=== PATIENT | female | born 1950 | race African-American/Black ===

== ENCOUNTER 2017-09-24 08:40 | Emergency (ER) | payer MEDICARE ==
[~2017-09-24] VITALS: Ht 167.6 cm; Wt 91.0 kg
[~2017-09-24 08:40] MED LIST: AMLO1CAP6 PO; ASPI-986 PO; QUET100T PO; SIMV10TA6 PO; SUCR1TAB PO
[2017-09-24] MEDS ORDERED: SODIUM CHLORIDE 0.9% 1,000 ML IV ONE (08:51)
[2017-09-24 09:45] LABS: BASOPHILS % 0.8 % (0.0-2.0); EOSINOPHILS % 1.5 % (0.0-5.0); HEMATOCRIT. 31.8 % (36.0-48.0); HEMOGLOBIN. 11.2 g/dL (12.0-16.0); LYMPHOCYTES % 14.2 % (20.0-50.0); MEAN CORPUSCULAR HEMOGLOBIN 31.5 pg (28.0-32.0); MEAN CORPUSCULAR VOLUME 89.7 fL (81.0-99.0); MEAN PLATELET VOLUME 8.5 fl (7.4-10.4); MONOCYTES % 4.2 % (2.0-8.0); NEUTROPHILS % 79.3 % (40.0-76.0); PLATELET 195 x1000/uL (130-400); RED BLOOD CELL COUNT 3.55 mill/uL (4.2-5.4); RED CELL DISTRIBUTION WIDTH 13.8 % (11.6-14.6)
[2017-09-24 09:49] LABS: CHLORIDE 106 mEq/L (98-107)
[2017-09-24 11:05] LABS: CLARITY URINE CLEAR (CLEAR); COLOR URINE YELLOW (YELLOW); KETONES URINE NEGATIVE (NEGATIVE); LEUKOCYTE ESTERASE URINE 1+ (NEGATIVE); NITRITE URINE NEGATIVE (NEGATIVE); OCCULT BLOOD URINE NEGATIVE (NEGATIVE); PH URINE 5.5 (4.5-8.0); PROTEIN URINE NEGATIVE (NEGATIVE); SPECIFIC GRAVITY URINE 1.006 (1.005-1.030); UROBILINOGEN URINE 0.2 E.U./dL (0.2-1.0)
[2017-09-24 12:28] VITALS: BP 113/71
== END 2017-09-24 12:43 | disposition home or self-care (01) ==
LOC: ER 08:40
DX: R55 Syncope and collapse (principal); N39.0 Urinary tract infection, site not specified; R00.1 Bradycardia, unspecified; R42 Dizziness and giddiness; D64.9 Anemia, unspecified; I10 Essential (primary) hypertension; E11.65 Type 2 diabetes mellitus with hyperglycemia; M25.512 Pain in left shoulder; R20.2 Paresthesia of skin; M54.12 Radiculopathy, cervical region; Z87.42 Personal history of other diseases of the female genital tract; Z88.0 Allergy status to penicillin; Z79.899 Other long term (current) drug therapy
CPT/HCPCS: 36415; 71045; 80053; 81003; 84443; 84484; 85025; 93005; 96360; 96361; 99285; J7030

== ENCOUNTER 2021-12-08 10:15 | Emergency (ER) | payer MEDICARE ==
[~2021-12-08] VITALS: Ht 167.6 cm; Wt 87.0 kg
[~2021-12-08 10:15] MED LIST changes: -AMLO1CAP6 PO; +LOSA100T32 MT; -SIMV10TA6 PO; +SIMV10TA97 PO; -SUCR1TAB PO
[2021-12-08 10:45] LABS: EOSINOPHILS % 4.3 % (0.0-5.0); HEMATOCRIT. 36.3 % (36.0-48.0); HEMOGLOBIN. 12.5 g/dL (12.0-16.0); LYMPHOCYTES % 36.7 % (20.0-50.0); MEAN CORPUSCULAR HEMOGLOBIN 31.7 pg (28.0-32.0); MEAN CORPUSCULAR VOLUME 92.2 fL (81.0-99.0); MEAN PLATELET VOLUME 7.9 fl (7.4-10.4); MONOCYTES % 6.2 % (2.0-8.0); NEUTROPHILS % 51.8 % (40.0-76.0); PLATELET 208 x1000/uL (130-400); RED BLOOD CELL COUNT 3.94 mill/uL (4.2-5.4); RED CELL DISTRIBUTION WIDTH 13.3 % (11.6-14.6)
[2021-12-08 10:52] LABS: CHLORIDE 106 mEq/L (98-107)
[2021-12-08 11:31] LABS: CLARITY URINE CLEAR (CLEAR); COLOR URINE YELLOW (YELLOW); KETONES URINE NEGATIVE (NEGATIVE); LEUKOCYTE ESTERASE URINE TRACE (NEGATIVE); NITRITE URINE POSITIVE (NEGATIVE); OCCULT BLOOD URINE NEGATIVE (NEGATIVE); PH URINE 6.5 (4.5-8.0); PROTEIN URINE NEGATIVE (NEGATIVE); UROBILINOGEN URINE 0.2 E.U./dL (0.2-1.0)
[2021-12-08] MEDS ORDERED: CIPR-264 MT (12:28)
[2021-12-08 12:30] VITALS: BP 148/70
== END 2021-12-08 13:13 | disposition home or self-care (01) ==
LOC: ER 10:20
DX: N30.90 Cystitis, unspecified without hematuria (principal); I10 Essential (primary) hypertension; E11.9 Type 2 diabetes mellitus without complications; Z88.0 Allergy status to penicillin
CPT/HCPCS: 36415; 80053; 81003; 85025; 93005; 99285

== ENCOUNTER 2023-05-03 20:05 | Emergency (ER) | payer MEDICARE ==
[~2023-05-03] VITALS: Ht 167.6 cm; Wt 80.9 kg
[~2023-05-03 20:05] MED LIST changes: +CIPR-264 MT; -LOSA100T32 MT; +LOSA100T33 MT
[2023-05-03 20:07] VITALS: O2SAT 99
[2023-05-03 23:28] LABS: BASOPHILS % 0.1 % (0.0-2.0); HEMOGLOBIN. 12.2 g/dL (12.0-16.0); LYMPHOCYTES % 9.1 % (20.0-50.0); MEAN CORPUSCULAR HEMOGLOBIN 31.2 pg (28.0-32.0); MEAN CORPUSCULAR HGB CONC 33.9 g/dL (31.0-37.0); MEAN CORPUSCULAR VOLUME 92.3 fL (81.0-99.0); MEAN PLATELET VOLUME 8.3 fl (7.4-10.4); MONOCYTES % 5.5 % (2.0-8.0); NEUTROPHILS % 85.3 % (40.0-76.0); PLATELET 287 x1000/uL (130-400); RED BLOOD CELL COUNT 3.91 mill/uL (4.2-5.4); RED CELL DISTRIBUTION WIDTH 13.7 % (11.6-14.6); WHITE BLOOD COUNT 14.1 x1000/uL (4.5-11.0)
[2023-05-03 23:36] LABS: ALANINE AMINOTRANSFERASE 14 IU/L (10-49); ALBUMIN 4.8 g/dL (3.2-4.8); ASPARTATE AMINOTRANSFERASE 18 IU/L (<34); BILIRUBIN TOTAL 0.6 mg/dL (0.1-1.0); CALCIUM 10.1 mg/dL (8.7-10.4); CARBON DIOXIDE 27 mEq/L (21-32); CHLORIDE 105 mEq/L (98-107); CREATININE 0.9 mg/dL (0.6-1.0); GLUCOSE 170 mg/dL (70-105); POTASSIUM 4.1 mEq/L (3.5-5.1); PROTEIN TOTAL 8.5 g/dL (6.0-8.3); SODIUM 135 mEq/L (136-145); UREA NITROGEN BLOOD 16 mg/dL (9-23)
[2023-05-04 02:09] LABS: CLARITY URINE CLEAR (CLEAR); COLOR URINE YELLOW (YELLOW); GLUCOSE URINE NEGATIVE (NEGATIVE); KETONES URINE NEGATIVE (NEGATIVE); LEUKOCYTE ESTERASE URINE TRACE (NEGATIVE); NITRITE URINE NEGATIVE (NEGATIVE); OCCULT BLOOD URINE NEGATIVE (NEGATIVE); PH URINE 6.5 (4.5-8.0); PROTEIN URINE NEGATIVE (NEGATIVE); SPECIFIC GRAVITY URINE 1.005 (1.005-1.030); UROBILINOGEN URINE 0.2 E.U./dL (0.2-1.0)
[2023-05-04 02:32] LABS: RBC URINE 0-2 /hpf (0-2); WBC URINE 0-2 /hpf (0-2)
[2023-05-04 02:33] LABS: BACTERIA URINE TRACE; SQUAMOUS EPITHELIAL CELL URINE FEW /lpf (RARE/1+)
[2023-05-04] MEDS ORDERED: GABA300C MT (05:21)
[2023-05-04 05:29] VITALS: BP 135/74; PULSE 77; RESP 15; TEMP 97.8
[2023-05-04] MEDS: PANTOPRAZOLE 40MG DR TABLET PO ONE (05:32)
== END 2023-05-04 05:52 | disposition home or self-care (01) ==
LOC: ER 20:10
DX: E11.40 Type 2 diabetes mellitus with diabetic neuropathy, unspecified (principal); I10 Essential (primary) hypertension; Z88.0 Allergy status to penicillin; Z91.018 Allergy to other foods
CPT/HCPCS: 36415; 80053; 81003; 85025; 93005; 99284

== ENCOUNTER 2024-10-02 17:07 | Emergency (ER) | payer MEDICARE ==
[~2024-10-02] VITALS: Ht 162.6 cm; Wt 73.0 kg
[~2024-10-02 17:07] MED LIST changes: +AMLO5TAB88 PO; -ASPI-986 PO; +BACL-141 MT; -CIPR-264 MT; +FAMO40TA7 PO; +FERR325T6 PO; +LOSA-413 MT; -LOSA100T33 MT; -QUET100T PO; +ROSU40TA MT; -SIMV10TA97 PO
[2024-10-02 17:10] VITALS: O2SAT 100
[2024-10-02] MEDS ORDERED: ONDANSETRON HCL 4MG/2ML INJ IV ONE (17:45)
[2024-10-02] MEDS ORDERED: MECLIZINE 25MG TABLET PO ONE (18:15)
[2024-10-02] MEDS ORDERED: MAGNESIUM/ALUMINUM HYDROXIDE/SIMETHICONE 30ML UDC PO ONE (18:15)
[2024-10-02] MEDS ORDERED: FAMOTIDINE 20MG/2ML VIAL IV ONE (18:15)
[2024-10-02 18:47] LABS: CLARITY URINE CLEAR (CLEAR); COLOR URINE YELLOW (YELLOW); GLUCOSE URINE NEGATIVE (NEGATIVE); KETONES URINE 1+ (NEGATIVE); LEUKOCYTE ESTERASE URINE 1+ (NEGATIVE); NITRITE URINE NEGATIVE (NEGATIVE); OCCULT BLOOD URINE NEGATIVE (NEGATIVE); PH URINE 8.5 (4.5-8.0); PROTEIN URINE NEGATIVE (NEGATIVE); SPECIFIC GRAVITY URINE 1.006 (1.005-1.030); UROBILINOGEN URINE 0.2 E.U./dL (0.2-1.0)
[2024-10-02 19:04] LABS: BACTERIA URINE 2+; RBC URINE 0-2 /hpf (0-2); SQUAMOUS EPITHELIAL CELL URINE FEW /lpf (RARE/1+)
[2024-10-02] MEDS: SODIUM CHLORIDE 0.9% 500 ML IV ONE (19:35)
[2024-10-02] MEDS: MAGNESIUM/ALUMINUM HYDROXIDE/SIMETHICONE 30ML UDC PO SCH (19:36)
[2024-10-02] MEDS: ONDANSETRON HCL 4MG/2ML INJ IV SCH (19:36)
[2024-10-02] MEDS: FAMOTIDINE 20MG/2ML VIAL IV SCH (19:36)
[2024-10-02] MEDS: MECLIZINE 25MG TABLET PO SCH (19:36)
[2024-10-02 19:43] LABS: BASOPHILS % 0.5 % (0.0-2.0); EOSINOPHILS % 0.5 % (0.0-5.0); HEMATOCRIT. 35.4 % (36.0-48.0); HEMOGLOBIN. 11.9 g/dL (12.0-16.0); LYMPHOCYTES % 12.4 % (20.0-50.0); MEAN PLATELET VOLUME 8.4 fl (7.4-10.4); MONOCYTES % 4.3 % (2.0-8.0); NEUTROPHILS % 82.3 % (40.0-76.0); PLATELET 222 x1000/uL (130-400); RED BLOOD CELL COUNT 3.91 mill/uL (4.2-5.4); RED CELL DISTRIBUTION WIDTH 13.7 % (11.6-14.6)
[2024-10-02 19:55] LABS: CREATININE 0.9 mg/dL (0.6-1.0); INR 1.0
[2024-10-02 19:56] LABS: ETHANOL BLOOD < 10 mg/dL (<10); UREA NITROGEN BLOOD 11 mg/dL (9-23)
[2024-10-02 19:57] LABS: ASPARTATE AMINOTRANSFERASE 18 IU/L (<34); BILIRUBIN DIRECT 0.2 mg/dL (<=3.0); TROPONIN I HIGH SENSITIVITY < 4 ng/L (3.0-34)
[2024-10-02 19:58] LABS: BILIRUBIN TOTAL 0.6 mg/dL (0.1-1.0); PROTEIN TOTAL 7.4 g/dL (6.0-8.3)
[2024-10-02] MEDS: CEFTRIAXONE 1GM/50ML 50 ML IV ONE (20:31)
[2024-10-02] MEDS ORDERED: CEFP200T13 MT (22:51)
[2024-10-02 23:15] VITALS: BP 132/62; PULSE 64; RESP 26; TEMP 36.6; O2SAT 98
== END 2024-10-02 23:38 | disposition home or self-care (01) ==
LOC: ER 17:07 → EDBEDREQ 21:37 → EDBEDREQTM 21:37 → ER 23:38 → CMPBEDREQ 10-03 08:03
DX: R42 Dizziness and giddiness (principal); R11.10 Vomiting, unspecified; N39.0 Urinary tract infection, site not specified; I10 Essential (primary) hypertension; E11.9 Type 2 diabetes mellitus without complications; R06.02 Shortness of breath; Z91.018 Allergy to other foods; Z88.0 Allergy status to penicillin; Z79.899 Other long term (current) drug therapy; Z98.890 Other specified postprocedural states
CPT/HCPCS: 80076; 80048; 81003; 80320; 83880; 83690; 83735; 85025; 85610; 85730; 87086; 87186; 84484; 87077; 36415; 71045; 70450; 74176; 93005; 96365; 96375; 99285; J8597; J0696; J1308; J2405; J7040; A4606; G0480